=== PATIENT | male | born 1985 | race Caucasian/White ===

== ENCOUNTER 2018-04-17 17:49 | Emergency (ER) | payer MEDICAID ==
[~2018-04-17] VITALS: Ht 165.1 cm; Wt 60.7 kg
[2018-04-17 17:54] VITALS: BP 112/71
== END 2018-04-17 20:07 | disposition home or self-care (01) ==
LOC: ER 17:51
DX: F22 Delusional disorders (principal)
CPT/HCPCS: 99281

== ENCOUNTER 2021-06-22 08:05 | Inpatient (IN) | payer MEDICAID ==
[~2021-06-22] VITALS: Ht 162.6 cm; Wt 68.3 kg
[2021-06-22] MEDS ORDERED: NICOTINE POLACRILEX 2 MG LOZENGE BC PRN (08:40)
[2021-06-22] MEDS ORDERED: acetaminophen 325mg tablet PO PRN ×2 (08:40)
[2021-06-22] MEDS ORDERED: mag hydrox/Alum hydrox/simeth 30ml oral suspension PO PRN (08:40)
[2021-06-22] MEDS ORDERED: magnesium hydroxide 30ml (MOM) UD suspension PO PRN (08:40)
[2021-06-22 09:15] VITALS: BP 111/59
--- NOTE | 2021-06-22 12:15 | NUR ---
ADMIT NOTE Pt is a 36 y/o male placed on a 5150 for DTS by [employer] as he was found sitting on the train tracks waiting to be hit. Tox screen is negative. [facility] Crisis unit staff reported that he appeared to be responding to internal stimuli, but that he denies A/H. Transferred from [facility] Unit to [facility] at 0900. Skin check completed, belongings inventoried. Cooperative with initial admit process, but presents withdrawn, hypoverbal, depressed, giving limited responses.
--- NOTE | 2021-06-22 16:51 | NUR ---
RN attempted multiple times to do admit and physical assessments and pt. refused.
[2021-06-22] MEDS ORDERED: NO HOME MEDS (17:01)
[2021-06-22 20:06] VITALS: BP 96/65
[2021-06-22] MEDS: PALIPERIDONE 3 MG TAB.ER.24 PO SCH (20:39)
[2021-06-22] MEDS: traZODone 50mg tablet PO SCH (20:39)
[2021-06-22] MEDS ORDERED: paliperidone 1.5mg ER tablet PO SCH (21:00)
--- NOTE | 2021-06-23 03:00 | NUR ---
Nursing Progress Note Legal hold: 5150 Report received from Naye BOLAÑOS with use of SBAR. Why they are here: Pt is a 36 y/o male placed on a 5150 for DTS by [facility] as he was found sitting on the train tracks waiting to be hit. Tox screen is negative. [facility] Crisis unit staff reported that he appeared to be responding to internal stimuli, but that he denies A/H. Transferred from [facility] Crisis Unit to [facility] at 0900. Skin check completed, belongings inventoried. Cooperative with initial admit process, but presents withdrawn, hypo verbal, depressed, giving limited responses. Assessment What has happened this shift: Patient was observed quickly pacing up and down hallway and talking to self at beginning of shift. Patient was polite and cooperative when nurse attempted to preform 1:1 assessment. Patient gave short quick answer and avoided eye contact. When nurse asked if patient was responding to internal stimuli patient denied. Patient stated he is not currently feeling suicidal and just wants to get out of here. Patient participated in snack time and then returned to pacing hallways. Patient reluctantly accepted night medications and shortly after went to bed. S/I, H/I: Denies. A/VH: Denies, but appears internally occupied. Sleep: See sleep assessment ADL's: Independent. Group attendance: No Were meds taken: Yes Any med S/E: None observed or reported. Mental Status Exam Appearance: Middle aged man with unkempt lara wearing unit green scrubs Eye contact: Fair Behavior: Cooperative, quiet Speech: Soft Mood: Fine Affect: Blunted. Thought process: Disorganized Thought Content: Poverty of thought Cognition: A/O X 3 Insight: Poor Judgment: Poor Interventions PRN's used: None. Therapeutic interventions: 1:1 assessment with therapeutic communication, encouraged pt to express his thoughts and feelings, active listening, medication administration/education/monitoring,, encouraged pt to participate in unit activities, reality orientation, distraction, redirection, positive reinforcement, and Q15 minute safety checks. Restraints/seclusion/emergency medication: N/A Justification: Patient on 5150 hold for danger to self, goal is to get patient stabilized and in appropriate housing placement.
[2021-06-23 07:27] VITALS: BP 95/50
[2021-06-23] MEDS: nicotine 21mg patch - 24 hr TD SCH ×2 (08:00→08:12)
[2021-06-23] MEDS: ESCITALOPRAM OXALATE 5 MG TABLET PO SCH (08:12)
[2021-06-23 09:44] LABS: BASOPHILS # (AUTO) 0.1 X10'3 (0-0.2); BASOPHILS % (AUTO) 0.9 % (0-1); EOSINOPHILS # (AUTO) 0.3 X10'3 (0-0.9); EOSINOPHILS % (AUTO) 4.1 % (0-6); LYMPHOCYTES # (AUTO) 3.4 X10'3 (1.1-4.8); LYMPHOCYTES % (AUTO) 42.8 % (21-51); MEAN CORPUSCULAR HEMOGLOBIN 30.5 PG (27.0-31.0); MEAN CORPUSCULAR HGB CONC 34.1 g/dL (33.0-36.5); MEAN CORPUSCULAR VOLUME 89.6 FL (78-98); MEAN PLATELET VOLUME 8.2 FL (7.4-10.4); MONOCYTES # (AUTO) 0.6 X10'3 (0-0.9); MONOCYTES % (AUTO) 7.7 % (2-12); NEUTROPHILS # (AUTO) 3.5 X10'3 (1.8-7.7); NEUTROPHILS % (AUTO) 44.5 % (42-75); PLATELET COUNT 297 X10'3 (140-440); RED BLOOD COUNT 4.57 X10'6 (4.70-6.10); RED CELL DISTRIBUTION WIDTH 13.2 % (11.5-14.5); WHITE BLOOD COUNT 7.9 X10'3 (4.5-11.0)
[2021-06-23 09:53] LABS: CHOL/HDL RATIO 3.8 (0.00-4.99); CHOLESTEROL 136 MG/DL (0-200); HDL CHOLESTEROL 36 MG/DL (35-60); LDL CHOLESTEROL 85 MG/DL (50-100); TRIGLYCERIDES 92 MG/DL (20-135)
[2021-06-23 10:02] LABS: HEMOGLOBIN A1C 5.8 % (4.5-6.2)
--- NOTE | 2021-06-23 16:01 | NUR ---
Nursing Progress Note Legal hold: 5150 Report received from CADEN Maldonado with use of SBAR. Why they are here: Pt is a 36 y/o male placed on a 5150 for DTS by [employer] as he was found sitting on the train tracks waiting to be hit. Tox screen is negative. [facility] Crisis unit staff reported that he appeared to be responding to internal stimuli, but that he denies A/H. Transferred from [facility] Crisis Unit to [facility] at 0900. Skin check completed, belongings inventoried. Cooperative with initial admit process, but presents withdrawn, hypo verbal, depressed, giving limited responses. Assessment What has happened this shift: Pt observed sleeping at the start of the shift. He was up for breakfast then quickly went back to his bed. Attempted in am to do his assessment but pt said, "I just want to go to sleep, I don't want to be here." Pt denies being suicidal or homicidal. He spent the afternoon pacing the halls with his arms crossed over his chest. S/I, H/I: Denies. A/VH: Denies Sleep: Napped in AM ADL's: Independent. Group attendance: N/A Were Meds taken: Yes Any med S/E: None observed or reported. Mental Status Exam Appearance: Averaged height male with unkempt lara wearing green unit scrubs Eye contact: Fair Behavior: Cooperative, quiet Speech: Soft Mood: "I'm alright." Affect: Blunted. Thought process: Disorganized Thought Content: Poverty of thought and speech Cognition: A/O X 3 Insight: Poor Judgment: Poor Interventions PRN's used: None. Therapeutic interventions: 1:1 assessment with therapeutic communication and active listening, encouraged pt to express his thoughts and feelings, medication administration/education/monitoring,, encouraged pt to participate in unit activities, and Q15 minute safety checks. Restraints/seclusion/emergency medication: N/A Justification: Patient on 5150 hold for danger to self, goal is to get patient stabilized and in appropriate housing placement.
[2021-06-23 19:12] VITALS: BP 98/60
[2021-06-23] MEDS: traZODone 50mg tablet PO SCH (20:15)
[2021-06-23] MEDS: PALIPERIDONE 3 MG TAB.ER.24 PO SCH (20:15)
--- NOTE | 2021-06-24 03:38 | NUR ---
Nursing Progress Note Legal hold: 5150 Report received from CADEN Castellon with use of SBAR. Why they are here: Pt is a 36 y/o male placed on a 5150 for DTS by [employer] as he was found sitting on the train tracks waiting to be hit. Tox screen is negative. [facility] Crisis unit staff reported that he appeared to be responding to internal stimuli, but that he denies A/H. Transferred from [facility] Crisis Unit to [facility] at 0900. Skin check completed, belongings inventoried. Cooperative with initial admit process, but presents withdrawn, hypo verbal, depressed, giving limited responses. Assessment What has happened this shift: Patient slept all shift. Was awoken by nurse to give night medications and take vitals. Patient refused to talk to nurse when attempting 1:1 assessment then went back to sleep. S/I, H/I: Denies. A/VH: Denies Sleep:See sleep assessment ADL's: Independent. Group attendance: N/A Were Meds taken: Yes Any med S/E: None observed or reported. Mental Status Exam Appearance: Averaged height male with unkempt lara wearing green unit scrubs Eye contact: Fair Behavior: Cooperative, quiet Speech: Soft Mood: tired Affect: Blunted. Thought process: MERYL Thought Content: Poverty of thought and speech Cognition: A/O X 3 Insight: Poor Judgment: Poor Interventions PRN's used: None. Therapeutic interventions: 1:1 assessment with therapeutic communication and active listening, encouraged pt to express his thoughts and feelings, medication administration/education/monitoring,, encouraged pt to participate in unit activities, and Q15 minute safety checks. Restraints/seclusion/emergency medication: N/A Justification: Patient on 5150 hold for danger to self, goal is to get patient stabilized and in appropriate housing placement.
[2021-06-24] MEDS: nicotine 21mg patch - 24 hr TD SCH (08:00)
[2021-06-24 08:23] VITALS: BP 95/60
[2021-06-24] MEDS: ESCITALOPRAM OXALATE 5 MG TABLET PO SCH (08:57)
--- NOTE | 2021-06-24 12:39 | NUR ---
Nursing Progress Note Legal hold: 5150 Report received from CADEN Cline with use of SBAR. Why they are here: Pt is a 36 y/o male placed on a 5150 for DTS by [employer] as he was found sitting on the train tracks waiting to be hit. Tox screen is negative. [facility] Crisis unit staff reported that he appeared to be responding to internal stimuli, but that he denies A/H. Transferred from [facility] Unit to [facility] at 0900. Skin check completed, belongings inventoried. Cooperative with initial admit process, but presents withdrawn, hypo verbal, depressed, giving limited responses. Assessment What has happened this shift: Pt observed sleeping at the start of the shift. Pt refused his breakfast then sleeping until close to lunch. Pt is medication compliant. He does not want his nicotine patch. Pt agreed to talk to Carmel today. Encouraged him to talk to her about his thoughts. Pt presents extremely depressed and apathetic. While talking with him pt appeared to have tears in his eyes. S/I, H/I: Denies. A/VH: Denies Sleep: Appears asleep on his bed most ot the day ADL's: Independent. Group attendance: N/A Were Meds taken: Yes Any med S/E: None observed or reported. Mental Status Exam Appearance: Averaged height male with unkempt lara wearing the same green unit scrubs Eye contact: Fair Behavior: Cooperative, possibley paranoid, agreeable with this nurse Speech: Soft, normal rate and rhythm Mood: apathetic, depressed Affect: Constricted Thought process: Poverty of thought Thought Content: unable to access Cognition: A/O X 3 Insight: Poor Judgment: Poor Interventions PRN's used: None. Therapeutic interventions: 1:1 assessment with therapeutic communication and active listening, encouraged pt to express his thoughts and feelings with his provider and staff, encouraged pt to shower and change his grees, medication administration/education/monitoring,, and Q15 minute safety checks. Restraints/seclusion/emergency medication: N/A Justification: Patient on 5150 hold for danger to self, goal is to get patient stabilized and in appropriate housing placement.
[2021-06-24 20:06] VITALS: BP 105/59
[2021-06-24] MEDS: PALIPERIDONE 3 MG TAB.ER.24 PO SCH (20:15)
[2021-06-24] MEDS: traZODone 50mg tablet PO SCH (20:15)
--- NOTE | 2021-06-25 00:24 | NUR ---
Nursing Progress Note Legal hold: 5150 Report received from CADEN Merino with use of SBAR. Why they are here: Pt is a 36 y/o male placed on a 5150 for DTS by [employer] as he was found sitting on the train tracks waiting to be hit. Tox screen is negative. [facility] Crisis unit staff reported that he appeared to be responding to internal stimuli, but that he denies A/H. Transferred from [facility] Unit to [facility] at 0900. Skin check completed, belongings inventoried. Cooperative with initial admit process, but presents withdrawn, hypo verbal, depressed, giving limited responses. Assessment What has happened this shift: Pt in bed napping at the start of the shift. Pt is medication compliant. Pt presents extremely depressed and withdrawn. Pt did get up and paced the garcia after med pass and did not inter act with anybody. After pacing in the garcia he returned to his room and went to sleep. S/I, H/I: Denies. A/VH: Denies Sleep: See sleep assessment ADL's: Independent. Group attendance: N/A Were Meds taken: Yes Any med S/E: None observed or reported. Mental Status Exam Appearance: Averaged height male with unkempt lara wearing the same green unit scrubs Eye contact: Fair Behavior: Cooperative, possibley paranoid, agreeable with this nurse Speech: Soft, normal rate and rhythm Mood: apathetic, depressed Affect: Constricted Thought process: Poverty of thought Thought Content: unable to access Cognition: A/O X 3 Insight: Poor Judgment: Poor Interventions PRN's used: None. Therapeutic interventions: 1:1 assessment with therapeutic communication and active listening, encouraged pt to express his thoughts and feelings with his provider and staff, encouraged pt to shower and change his grees, medication administration/education/monitoring,, and Q15 minute safety checks. Restraints/seclusion/emergency medication: N/A Justification: Patient on 5150 hold for danger to self, goal is to get patient stabilized and in appropriate housing placement.
[2021-06-25 07:51] VITALS: BP 132/66
[2021-06-25 07:59] VITALS: BP 132/66
[2021-06-25] MEDS: ESCITALOPRAM OXALATE 5 MG TABLET PO SCH (08:01)
[2021-06-25] MEDS: nicotine 21mg patch - 24 hr TD SCH (08:01)
--- NOTE | 2021-06-25 15:07 | NUR ---
Nursing Progress Note Legal hold: 5150 Report received from CADEN Gan with use of SBAR. Why they are here: Pt is a 36 y/o male placed on a 5150 for DTS by [employer] as he was found sitting on the train tracks waiting to be hit. Tox screen is negative. [facility] unit staff reported that he appeared to be responding to internal stimuli, but that he denies A/H. Transferred from [facility] Unit to [facility] at 0900. Skin check completed, belongings inventoried. Cooperative with initial admit process, but presents withdrawn, hypo verbal, depressed, giving limited responses. Assessment What has happened this shift: Pt observed sleeping at the start of the shift. Pt refused his breakfast then sleeping until close to lunch. Pt is medication compliant. He does not want his nicotine. Patient isolated to his room al day until 1500, patient is seen pacing the hallway draggin his feet, patient came up to this development writer and asked with a grin on his face, "how many days do they plan on keeping me here?", this development writer went on to ask patient why he was here, patient stated that [place] and was going to get up when he heard a train, I was never gonna lay there to get killed. questions asked: Food, "I have food stamps, I go to whatever store" Clothing, "I have clothes" Intermediate, "I stay at my uncles" Patient states he has never felt suicidal, but he has had some depression, it is unclear to this development writer if patient is downplaying his attempt or if he was just not willing to answer anyones questions. Patient did say that he knew no matter what he said that they were going to take him to mental health. Patient denies any MH hosp or treatment. S/I, H/I: Denies. A/VH: Denies Sleep: Appears asleep on his bed most ot the day ADL's: Independent. Group attendance: N/A Were Meds taken: Yes Any med S/E: None observed or reported. Mental Status Exam Appearance: Averaged height male with unkempt lara wearing the same green unit scrubs Eye contact: Fair Behavior: Cooperative, possibley paranoid, agreeable with this nurse Speech: Soft, normal rate and rhythm Mood: apathetic, depressed Affect: Constricted Thought process: Poverty of thought Thought Content: unable to access Cognition: A/O X 3 Insight: Poor Judgment: Poor Interventions PRN's used: None. Therapeutic interventions: 1:1 assessment with therapeutic communication and active listening, encouraged pt to express his thoughts and feelings with his provider and staff, encouraged pt to shower and change his grees, medication administration/education/monitoring,, and Q15 minute safety checks. Restraints/seclusion/emergency medication: N/A Justification:Patient needs more time on medication to be evaluated for a safe discharge.
[2021-06-25] MEDS: traZODone 50mg tablet PO SCH (20:05)
[2021-06-25] MEDS: PALIPERIDONE 3 MG TAB.ER.24 PO SCH (20:05)
[2021-06-25 20:31] VITALS: BP 103/59
[2021-06-25 20:32] VITALS: BP 103/59
--- NOTE | 2021-06-26 00:15 | NUR ---
Nursing Progress Note Legal hold: 5150 Report received from CADEN Maldonado with use of SBAR. Why they are here: Pt is a 36 y/o male placed on a 5150 for DTS by [employer] as he was found sitting on the train tracks waiting to be hit. Tox screen is negative. [facility] Crisis unit staff reported that he appeared to be responding to internal stimuli, but that he denies A/H. Transferred from [facility] Unit to [facility] at 0900. Skin check completed, belongings inventoried. Cooperative with initial admit process, but presents withdrawn, hypo verbal, depressed, giving limited responses. Assessment What has happened this shift: Pt was up on the unit keeping to him self. He asked if he could leave this place. Stating I dont want to be here.Patient states he has never felt suicidal, but he has had some depression, Patient denies any MH issues S/I, H/I: Denies. A/VH: Denies Sleep: See sleep assessment ADL's: Independent. Group attendance: N/A Were Meds taken: Yes Any med S/E: None observed or reported. Mental Status Exam Appearance: Averaged height male with unkempt lara wearing the same green unit scrubs Eye contact: Fair Behavior: Cooperative, possibley paranoid, agreeable with this nurse Speech: Soft, normal rate and rhythm Mood: apathetic, depressed Affect: Constricted Thought process: Poverty of thought Thought Content: unable to access Cognition: A/O X 3 Insight: Poor Judgment: Poor Interventions PRN's used: None. Therapeutic interventions: 1:1 assessment with therapeutic communication and active listening, encouraged pt to express his thoughts and feelings with his provider and staff, encouraged pt to shower and change his grees, medication administration/education/monitoring,, and Q15 minute safety checks. Restraints/seclusion/emergency medication: N/A Justification:Patient needs more time on medication to be evaluated for a safe discharge. Addendum: 06/26/21 at 0027 by Dewayne Mancera RN Pt paced the hallway till almost 11 pm.
[2021-06-26 07:56] VITALS: BP 106/58
[2021-06-26] MEDS: nicotine 21mg patch - 24 hr TD SCH (08:00)
[2021-06-26] MEDS: ESCITALOPRAM OXALATE 5 MG TABLET PO SCH (08:07)
--- NOTE | 2021-06-26 15:25 | NUR ---
Nursing Progress Note Legal hold: 5250 Report received from CADEN Morrow with use of SBAR. Why they are here: Pt is a 36 y/o male placed on a 5150 for DTS by [employer] as he was found sitting on the train tracks waiting to be hit. Tox screen is negative. [facility] Crisis unit staff reported that he appeared to be responding to internal stimuli, but that he denies A/H. Transferred from [facility] Crisis Unit to [facility] at 0900. Skin check completed, belongings inventoried. Cooperative with initial admit process, but presents withdrawn, hypo verbal, depressed, giving limited responses. Assessment What has happened this shift: Pt was up before breakfast pacing in the hallway. Pt's Lexapro was increased to 15 mg daily, pt was cooperative with taking his Lexapro. Pt refused his nicotine patch. Pt perseverated on discharge today. Pt stated that his mom could come pick him up when he's discharged today. Pt wished to speak with SW multiple times. Pt denied depression, SI/HI/AH/VH. When asked pt why he believed he was here, pt replied, "Well, I just wasn't talking enough." When reminded that he had been sitting on the train tracks, pt stated, "I would have got up." Pt was walking around the unit with bare feet. Encouraged pt to wear socks, provided him with a clean pair which he did put on and wear. S/I, H/I: Pt denies. A/VH: Pt denies Sleep: Pt slept 3.5 hours last night per noc shift report. ADL's: Independent. Group attendance: No Were Meds taken: Yes though refused nicotine patch Any med S/E: None noted or reported. Mental Status Exam Appearance: Short, slim man with messy dark hair, facial stubble and brown teeth dressed in green unit scrubs. Eye contact: Good Behavior: Cooperative, restless, paces Speech: Clear, audible,normal rate & rhythm. Mood: Mildly anxious. Affect: Congruent Thought process: Linear, perseverative Thought Content: Perseverates on wishing to be discharged. Cognition: A/O X 3 Insight: Poor Judgment: Poor Interventions PRN's used: None. Therapeutic interventions: 1:1 assessment, establishment of rapport, therapeutic conversation, active listening, encouraged pt to participate in unit procedures and attend groups, ensured contract for safety, provided distraction, redirection, reality orientation, positive reinforcement, and Q 15 minute safety checks. Restraints/seclusion/emergency medication: N/A Justification: Pt was in need of crisis interruption and stabilization with medication management and monitoring until stable to prevent danger to self.
[2021-06-26] MEDS: PALIPERIDONE 3 MG TAB.ER.24 PO SCH (20:06)
[2021-06-26] MEDS: traZODone 50mg tablet PO SCH (20:06)
[2021-06-26 20:30] VITALS: BP 106/55
--- NOTE | 2021-06-27 00:06 | NUR ---
Nursing Progress Note Legal hold: 5250 Report received from Erica NEGRETE with use of SBAR. Why they are here: Pt is a 36 y/o male placed on a 5150 for DTS by [employer] as he was found sitting on the train tracks waiting to be hit. Tox screen is negative. [facility] Crisis unit staff reported that he appeared to be responding to internal stimuli, but that he denies A/H. Transferred from [facility] Crisis Unit to [facility] at 0900. Skin check completed, belongings inventoried. Cooperative with initial admit process, but presents withdrawn, hypo verbal, depressed, giving limited responses. Assessment What has happened this shift: Pt was up in the garcia and pacing around the unit. He was more social with peers and staff today. He ate snack in the group room and was med compliant. Pt remarked the he hopes to go home tomorrow. Eye contact: Good Behavior: Cooperative, restless, paces Speech: Clear, audible,normal rate & rhythm. Mood: Mildly anxious. Affect: Congruent Thought process: Linear, perseverative Thought Content: Perseverates on wishing to be discharged. Cognition: A/O X 3 Insight: Poor Judgment: Poor Interventions PRN's used: None. Therapeutic interventions: 1:1 assessment, establishment of rapport, therapeutic conversation, active listening, encouraged pt to participate in unit procedures and attend groups, ensured contract for safety, provided distraction, redirection, reality orientation, positive reinforcement, and Q 15 minute safety checks. Restraints/seclusion/emergency medication: N/A Justification: Pt was in need of crisis interruption and stabilization with medication management and monitoring until stable to prevent danger to self.
[2021-06-27] MEDS: ESCITALOPRAM OXALATE 5 MG TABLET PO SCH (07:06)
--- NOTE | 2021-06-27 07:34 | NUR ---
Initial: Pt admitted w/ increasing depression per EMR. Pt currently on Regular diet eating mostly 100% of meals though may refuse one every now and then. LBM 06/24. No nutrition intervention implemented at this time, will continue to monitor. Recs: 1. Continue Regular diet as tolerated 2. Bowel care per rx 3. Weekly wts Addendum: 06/27/21 at [address] Amended: Links added.
[2021-06-27 08:00] VITALS: BP 93/54
[2021-06-27] MEDS: nicotine 21mg patch - 24 hr TD SCH (08:00)
[2021-06-27] MEDS ORDERED: ESCITALOPRAM OXALATE 5 MG TABLET PO ONE (08:10)
--- NOTE | 2021-06-27 13:27 | NUR ---
Nursing Progress Note Legal hold: 5250 Report received from CADEN Morrow with use of SBAR. Why they are here: Pt is a 36 y/o male placed on a 5150 for DTS by [employer] as he was found sitting on the train tracks waiting to be hit. Tox screen is negative. [facility] Crisis unit staff reported that he appeared to be responding to internal stimuli, but that he denies A/H. Transferred from [facility] Crisis Unit to [facility] at 0900. Skin check completed, belongings inventoried. Cooperative with initial admit process, but presents withdrawn, hypo verbal, depressed, giving limited responses. Assessment What has happened this shift: Pt was up for breakfast. Pt was cooperative with taking his Lexapro. Lexapro was increased to 20 mg today. Pt refused his nicotine patch. Pt paces the unit. Pt appears restless and bored. Pt continues to focus on wishing to be discharged. Pt denies depression, SI/HI/AH/VH. Pt may be minimizing symptoms. S/I, H/I: Pt denies. A/VH: Pt denies Sleep: Pt slept 5.5 hours last night per noc shift report. ADL's: Independent. Group attendance: No Were Meds taken: Yes though refused nicotine patch Any med S/E: None noted or reported. Mental Status Exam Appearance: Short, slim man with messy dark hair, facial stubble and brown teeth dressed in green unit scrubs. Eye contact: Good Behavior: Cooperative, restless, paces Speech: Clear, audible,normal rate & rhythm. Mood: Bored Affect: Restless Thought process: Linear, perseverative Thought Content: Perseverates on wishing to be discharged. Cognition: A/O X 3 Insight: Poor Judgment: Poor Interventions PRN's used: None. Therapeutic interventions: 1:1 assessment, establishment of rapport, therapeutic conversation, active listening, encouraged pt to participate in unit procedures and attend groups, ensured contract for safety, provided distraction, redirection, reality orientation, positive reinforcement, and Q 15 minute safety checks. Restraints/seclusion/emergency medication: N/A Justification: Pt was in need of crisis interruption and stabilization with medication management and monitoring until stable to prevent danger to self. Pt is unable to formulate a viable discharge plan at this time. Addendum: 06/27/21 at 1408 by Precious Salter RN (Lee) Pt did attend afternoon group.
--- NOTE | 2021-06-27 15:39 | NUR ---
Group Art Tx, Continued: Patient chose to remain in the group room during the session. He remained as an observer, sitting in a chair and listening from the back of the room.He was encouraged throughout the session, to see IF was interested in joining the discussion. Patient remained content to remain quietly listening. Not interactions with this staff or his peers were made. *Please refer to the [facility] Case Notes for entire overview. Jennifer Vincent MA, SPANNER OPERATOR #[id number] [facility] Art Therapist Addendum: 06/27/21 at 1542 by Jennifer Vincent SS Amended: Links added.
[2021-06-27 19:44] VITALS: BP 113/64
[2021-06-27] MEDS: PALIPERIDONE 3 MG TAB.ER.24 PO SCH (20:02)
[2021-06-27] MEDS: traZODone 50mg tablet PO SCH (20:02)
--- NOTE | 2021-06-28 01:29 | NUR ---
Nursing Progress Note Legal hold: 5250 Report received from CADEN Maldonado with use of SBAR. Why they are here: Pt is a 36 y/o male placed on a 5150 for DTS by [employer] as he was found sitting on the train tracks waiting to be hit. Tox screen is negative. [facility] Crisis unit staff reported that he appeared to be responding to internal stimuli, but that he denies A/H. Transferred from [facility] Crisis Unit to [facility] at 0900. Skin check completed, belongings inventoried. Cooperative with initial admit process, but presents withdrawn, hypo verbal, depressed, giving limited responses. Assessment What has happened this shift: Pt was in a good mood this evening, joking and conversing with this rn. Pt is looking forward to dcing and feels like he is ready. Pt denies all mh symptoms. Pt plans to stay with his mom for a couple days and hopes to find work soon. All hs meds taken without issue. S/I, H/I: Pt denies. A/VH: Pt denies Sleep: see sleep assessment ADL's: Independent. Group attendance: No Were Meds taken: Yes Any med S/E: None noted or reported. Mental Status Exam Appearance: man, short Eye contact: Good Behavior: Cooperative, restless, paces Speech: Clear, audible, normal rate & rhythm. Mood: happy Affect: congruent Thought process: Linear Thought Content: Perseverates on wishing to be discharged. Cognition: A/O X 3 Insight: Poor Judgment: Poor Interventions PRN's used: None. Therapeutic interventions: 1:1 assessment, establishment of rapport, therapeutic conversation, active listening, encouraged pt to participate in unit procedures and attend groups, ensured contract for safety, provided distraction, redirection, reality orientation, positive reinforcement, and Q 15 minute safety checks. Restraints/seclusion/emergency medication: N/A Justification: Pt was in need of crisis interruption and stabilization with medication management and monitoring until stable to prevent danger to self. Pt is unable to formulate a viable discharge plan at this time.
[2021-06-28 07:28] VITALS: BP 95/54
[2021-06-28] MEDS: nicotine 21mg patch - 24 hr TD SCH ×2 (07:49→08:00)
[2021-06-28] MEDS: ESCITALOPRAM OXALATE 5 MG TABLET PO SCH (07:49)
--- NOTE | 2021-06-28 09:22 | NUR ---
DCP Presenting Issues: Pt's stable and denies any SI/HI/AH/VH and/or delusions. Pt needs a dcp to facilitate discharge. Pt's been reporting that his mother will pick him up @ discharge however, this clinician has made 4 attempts to contact the mother to engage her in dcp activities and determine a discharge destination and coordinate transportation for pt upon discharge. Interventions: Clinician met w/pt and engaged him in dcp activities to finalize his dcp. Per session, pt now states that he will discharge to the [facility] and still maintains that his mother will pick him up. Clinician also attempted to get pt to identify a discharge destination either staying w/his mother in [place] or returning to [place], pt decides that he will go to the [facility]. Clinician informed pt that he will need to attend [facility] to establish outpatient mental healthcare, pt agreed to do so. As pt lacks adequate resources and support it is likely that he will return to the ER again soon after d/c. Plan: Pt will go to the [facility] upon discharge, will need a bus pass as it is unclear if pt's mother will transport. Aleta Barlow LCSW Addendum: 06/28/21 at 0949 by Aleta Barlow SS Amended: Links added.
--- NOTE | 2021-06-28 16:41 | NUR ---
Nursing Progress Note: Rashi Legal hold: 5250 Report received from CADEN Lara with use of SBAR. Why they are here: Pt is a 36 y/o male placed on a 5150 for DTS by [employer] as he was found sitting on the train tracks waiting to be hit. Tox screen is negative. [facility] Crisis unit staff reported that he appeared to be responding to internal stimuli, but that he denies A/H. Assessment What has happened this shift: Pt received up in garcia pacing. Pt received his medications and refused scheduled Nicotine patch. Later providing active listening and positive encouragement during 1:1 assessment. Pt. denies SI,HI, and states I wasnt going to kill myself, I was going to move before the train came. Pt. denies AH and no s/sx of responding to IS found. Pt. states Im going to go to the [facility] when I get out. Pt. ate his meals in the dining room and isolates to himself not socializing with cohorts. Pt. approached junior technical writer several times reiterating his DC plans and requesting to speak to SW to discuss his conversations with his mother. Zero ASE r/t increased dosage of Lexapro this shift. Pt. continues to be observed pacing the unit. Pt. did attend group briefly this shift. Pt. participated in snacks today. S/I, H/I: Denies. A/VH: Denies Sleep: Pt slept 5.25 hours per noc shift. ADL's: Independent. Group attendance: No Were Meds taken: Yes, refused nicotine patch Any med S/E: None noted or reported. Mental Status Exam Appearance: male, missing teeth, and dressed in green unit scrubs. Eye contact: Good Behavior: Cooperative, restless, paces Speech: Clear, audible. Mood: Anxious. Affect: Congruent with mood Thought process: Linear, perseverative Thought Content: Perseverates on his discharge. Cognition: A/O X 3 Insight: Poor Judgment: Poor Interventions PRN's used: None. Therapeutic interventions: 1:1 assessment, establishment of rapport, therapeutic conversation, active listening, encouraged pt to participate in unit procedures and attend groups, ensured contract for safety, provided distraction, redirection, reality orientation, positive reinforcement, and Q 15 minute safety checks. Restraints/seclusion/emergency medication: N/A Justification: Pt was in need of crisis interruption and stabilization with medication management and monitoring until stable to prevent danger to self.
[2021-06-28 19:19] VITALS: BP 113/75
[2021-06-28] MEDS: traZODone 50mg tablet PO SCH (20:09)
[2021-06-28] MEDS: PALIPERIDONE 3 MG TAB.ER.24 PO SCH (20:09)
--- NOTE | 2021-06-29 02:24 | NUR ---
Nursing Progress Note: Rashi Legal hold: 5250 Report received from CADEN Khoury with use of SBAR. Why they are here: Pt is a 36 y/o male placed on a 5150 for DTS by [employer] as he was found sitting on the train tracks waiting to be hit. Tox screen is negative. [facility] Crisis unit staff reported that he appeared to be responding to internal stimuli, but that he denies A/H. Assessment What has happened this shift: Patient was found waiting for nurse at beginning of shift. Patient was concerned about his hearing tomorrow and asking what he would have to do to get out of here, Patient brought nurse some of his paperwork asking to explain. Patient began pacing up and down the hallway until it was time for snack. Patient participated in snack time and then sat in recreation room until going to bed at 10:30. Patient took all night medications without issue. S/I, H/I: Denies. A/VH: Denies Sleep: See sleep assessment ADL's: Independent. Group attendance: No Were Meds taken: Yes Any med S/E: None noted or reported. Mental Status Exam Appearance: male, dressed in green unit scrubs. Eye contact: Good Behavior: Cooperative, restless, paces Speech: Clear, audible. Mood: Anxious. Affect: Congruent with mood Thought process: Linear, perseverative Thought Content: Perseverates on his discharge. Cognition: A/O X 3 Insight: Poor Judgment: Poor Interventions PRN's used: None. Therapeutic interventions: 1:1 assessment, establishment of rapport, therapeutic conversation, active listening, encouraged pt to participate in unit procedures and attend groups, ensured contract for safety, provided distraction, redirection, reality orientation, positive reinforcement, and Q 15 minute safety checks. Restraints/seclusion/emergency medication: N/A Justification: Pt was in need of crisis interruption and stabilization with medication management and monitoring until stable to prevent danger to self.
[2021-06-29 07:13] VITALS: BP 96/50
[2021-06-29] MEDS: ESCITALOPRAM OXALATE 5 MG TABLET PO SCH (07:28)
[2021-06-29] MEDS: nicotine 21mg patch - 24 hr TD SCH (07:32)
--- NOTE | 2021-06-29 11:10 | NUR ---
PROBABLE CAUSE HEARING Patients Name: Rashi Sanchez Admission Date: 06/22/21 Date of 5150: 06/21/2021 Written by: Rui Guajardo PD Criteria: DTS Summary of Facts: PD reported that there was a man sitting on the train tracks who stated that he was waiting on the tracks for a train to kill him. Date of 525: 06/25/21 Written by: K Criteria: DTS Summary of Facts: Pt states I am better, but I am still feeling depressed, I am still feeling suicidal. Given his current suicidal thoughts and depressive symptoms it would be safe to continue treatment involuntarily Diagnosis: MDD Behavior during past 48 HRS: Depression 4/5, not suicidal, forward looking as far as getting documents that he needs like his ID FOOD: 100 SLEEPIN.5 ADLS: Ind USP: Homeless MEDICATION DOSAGE FREQUENCY DURATION Trazodone 50 mg at 8 pm Invega 3 mg po q hs Lexapro 20 mg po q day
[2021-06-29] MEDS ORDERED: NICO-687 TD (15:33)
[2021-06-29] MEDS ORDERED: ESCI20TA39 PO (15:33)
[2021-06-29] MEDS ORDERED: TRAZ-251 PO (15:33)
[2021-06-29] MEDS ORDERED: PALI3TAB5 PO (15:33)
--- NOTE | 2021-06-29 16:48 | NUR ---
Discharge Note Pt discharged with all of his belongings and information regarding discharge reviewed with pt. Along with his follow up services at [facility] Friday-Friday from 8:30 AM-3:00PM [address] [place] [phone]. Pt. prescriptions sent to his pharmacy of choice. Pt. ambulated off the unit at 1642.
== END 2021-06-29 16:44 | disposition home or self-care (01) | DRG 751 ==
LOC: ADULT MH 09:25
PROVIDERS: ADMIT Psychiatry & Neurology Psychiatry; ATTEND Psychiatry & Neurology Psychiatry
DX: F33.3 Major depressive disorder, recurrent, severe with psychotic symptoms (principal); R45.851 Suicidal ideations; F17.210 Nicotine dependence, cigarettes, uncomplicated; Z59.00 Homelessness unspecified
CPT/HCPCS: 36415; 80061; 83036; 85025; 87081